=== PATIENT | female | born 1950 | race Caucasian/White ===

== ENCOUNTER 2020-11-09 08:17 | Outpatient (REF) | payer MEDICARE, OTHER, SELFPAY ==
--- NOTE | ~2020-11-09 | MM_ITS ---
EXAMINATION: MM SCREENING DIGITAL BREAST TOMOSYNTHESIS, BILATERAL CLINICAL INFORMATION: Screening. Asymptomatic. The lifetime risk of breast cancer based on the Tyrer-Cuzick Model is 3%. COMPARISON: Mammography: 11/04/2019, 11/01/2018, 10/29/2017, 10/27/2016 TECHNIQUE: Digital breast tomosynthesis is performed in both the craniocaudal and mediolateral oblique views along with computer-aided detection (CAD). Synthesized 2D images are generated from the tomosynthesis. FINDINGS: There are scattered areas of fibroglandular density (ACR BI-RADS breast composition Category b). Parenchymal pattern is similar to prior studies. There is parenchymal asymmetry mid upper right breast on MLO view similar to prior exams. Grouped calcifications again seen posterior upper outer left breast perhaps related to degenerating fibroadenoma. There is no developing density or interval mass or architectural abnormality. The axilla and skin contours are unremarkable. MM/MM tomosynthesis screening BI IMPRESSION: No significant changes from prior studies. ASSESSMENT: BI-RADS 2: Benign RECOMMENDATION: Routine annual mammography screening. This patient's information was entered into a reminder system with a target due date for their next mammogram.
== END 2020-11-09 08:18 | disposition home or self-care (01) ==
LOC: HO.MAMMO 08:17
PROVIDERS: Absent Provider Nurse Practitioner Adult Health; PCP Internal Medicine; Visit Provider Internal Medicine
DX: Z12.31 Encounter for screening mammogram for malignant neoplasm of breast (principal)
CPT/HCPCS: 77063; 77067

== ENCOUNTER 2021-11-13 08:56 | Outpatient (REF) | payer MEDICARE, OTHER, SELFPAY ==
--- NOTE | ~2021-11-13 | MM_ITS ---
EXAMINATION: MM SCREENING DIGITAL BREAST TOMOSYNTHESIS, BILATERAL CLINICAL INFORMATION: Screening. Asymptomatic. The lifetime risk of breast cancer based on the Tyrer-Cuzick Model is 3%. COMPARISON: Mammography: 11/09/2020, 11/04/2019, 11/01/2018 TECHNIQUE: Digital breast tomosynthesis is performed in both the craniocaudal and mediolateral oblique views along with computer-aided detection (CAD). Synthesized 2D images are generated from the tomosynthesis. Additional right MLO view is provided. FINDINGS: There are scattered areas of fibroglandular density (ACR BI-RADS breast composition Category b). Parenchymal pattern is similar to prior studies. No developing density or interval mass or architectural abnormality. There are grouped benign-appearing calcifications again seen posterior upper outer left breast, likely degenerating fibroadenoma. No suspicious calcifications. The axilla are unremarkable. MM/MM tomosynthesis screening BI IMPRESSION: No mammographic evidence of malignancy. ASSESSMENT: BI-RADS 2: Benign RECOMMENDATION: Routine annual mammography screening. This patient's information was entered into a reminder system with a target due date for their next mammogram.
== END 2021-11-13 08:57 | disposition home or self-care (01) ==
LOC: HO.MAMMO 08:56
PROVIDERS: Visit Provider Internal Medicine
DX: Z12.31 Encounter for screening mammogram for malignant neoplasm of breast (principal)
CPT/HCPCS: 77063; 77067

== ENCOUNTER 2021-12-05 10:29 | Outpatient (REF) | payer MEDICARE, OTHER, SELFPAY ==
[2021-12-05 14:43] LABS: Alanine Aminotransferase 12 U/L (0-31); Anion Gap 14 (12-20); Aspartate Amino Transferase 17 U/L (5-31); Blood Urea Nitrogen 18 mg/dL (9-16); Carbon Dioxide 25 mmol/L (22-29); Chloride 106 mmol/L (96-108); Cholesterol 210 mg/dL; Estimated Glomerular Filt Rate > 60; Glucose Fasting 92 mg/dL (60-99); HDL Cholesterol 61 mg/dL; LDL Cholesterol Calculated 136 mg/dl; Potassium 4.3 mmol/L (3.3-5.1); Sodium 141 mmol/L (135-145); Triglycerides 66 mg/dL
== END 2021-12-05 10:30 | disposition home or self-care (01) ==
LOC: HO.HMGCLDS 10:29
PROVIDERS: PCP Internal Medicine; Visit Provider Internal Medicine
DX: E66.3 Overweight (principal); G61.82 Multifocal motor neuropathy; G43.009 Migraine without aura, not intractable, without status migrainosus; N95.9 Unspecified menopausal and perimenopausal disorder; Z79.899 Other long term (current) drug therapy
CPT/HCPCS: 36415; 80048; 80061; 84450; 84460

== ENCOUNTER 2021-12-09 08:38 | Outpatient (REF) | payer MEDICARE, OTHER, SELFPAY ==
--- NOTE | ~2021-12-09 | XR_ITS ---
EXAMINATION: XR SHOULDER, RIGHT CLINICAL INFORMATION: Right shoulder sprain. COMPARISON: None TECHNIQUE: Three views of the right shoulder. FINDINGS: Superolateral deformity of the humeral head adjacent to the greater trochanter, which could be seen with a Hill-Sachs injury. No displaced fractures. No subluxation. Mild degenerative changes of the glenohumeral joint and moderate degenerative changes of the acromioclavicular joint manifested by subcortical sclerosis, osteophytes and joint space narrowing. No suspicious soft tissue calcifications. The included portion of the right-sided ribs and right lung are within normal limits. XR/XR shoulder RT min 2V IMPRESSION: Questionable Hill-Sachs fracture, indeterminate age. 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 Mild degenerative osteoarthritis of the glenohumeral joint.
== END 2021-12-09 08:39 | disposition home or self-care (01) ==
LOC: HO.HMGCX 08:38
PROVIDERS: PCP Internal Medicine; Visit Provider Internal Medicine
DX: S43.91XA Sprain of unspecified parts of right shoulder girdle, initial encounter (principal)
CPT/HCPCS: 73030

== ENCOUNTER 2022-10-02 13:39 | Outpatient (REF) | payer MEDICARE, OTHER, SELFPAY | END 2022-10-02 13:40 | disposition home or self-care (01) | LOC: HO.HMGCLDS 13:39 | PROVIDERS: PCP Internal Medicine; Visit Provider Internal Medicine | DX: R30.0 Dysuria (principal) | CPT/HCPCS: 87086 ==

== ENCOUNTER 2022-11-11 13:14 | Outpatient (AMB) | payer MEDICARE, OTHER, SELFPAY ==
--- NOTE | 2022-11-11 13:47 | MHC.PC.OV ---
Vital Signs 11/11/22 13:51 Height 5 ft 7 in Weight 188 lb BMI 29.4 BP 122/70 Blood Pressure Location Rt brachial Position Sitting Pulse 68 Pulse Source Pulse Oximeter Pulse Oximetry (%) 99 Oxygen Delivery Method Room Air Intake Visit Reasons: EKG results from outside hospital concerns Intake Note: Pt is here today to discuss EKG done at a urgent care Allergies codeine Allergy (Unknown, Verified 11/12/22 00:42) gi upset meperidine [Demerol] Allergy (Unknown, Verified 11/12/22 00:42) rash codeine Allergy (Unknown, Uncoded 11/12/22 00:42) vomiting Medication List - Last Reconciled 11/12/22 by Elaina Melgoza MD calcium carbonate (Calcium) 600 mg PO DAILY immune globul G-gly-IgA avg 46 40 gram/400 mL (10 %) (Gamunex-C) IV Tobacco use date assessed: 11/11/22 Fall risk assessment: No Falls in past year Last assessed Fall Risk: 11/11/22 Dental Screening Dental Screen Date: 11/11/22 Did you have a dental visit in the last 12 months?: Yes Did you have a dental problem in the last 6 months where you did not have access to dental care?: Yes Was dental information given to patient?: Patient has dentist HPI HPI Comments History of Present Illness Details 72-year-old lady history of multifocal motor neuropathy, chronic inflammatory demyelinating polyneuropathy, currently on long-term IV immunoglobulin, here today for follow-up after recent episodes of lightheadedness accompanied by nausea, unrelated to changes in position, which prompted her to be seen at an urgent care clinic 10/29/2022. Patient states that episodes are non provoked, unrelated to any position change, or exertion. Typically resolves after a few seconds to minutes. She denies any headache, or vision change no palpitation, no shortness of breath or syncope EKG done at the clinic showed presence of inter atrial conduction delay and possible interventricular delay, otherwise she was in normal sinus rhythm. She has had labs done recently which showed normal CBC, electrolytes,, thyroid level and fasting lipids and blood sugar levels. Still having recurrent episodes of lightheadedness similar to what she experienced prior to going to hurting care, but no other symptoms accompanying it. [facility] Medical History (Updated 11/12/22 @ 00:49 by Elaina Melgoza MD) Chronic inflammatory demyelinating polyneuropathy Dyslipidemia Fatigue Intermittent lightheadedness Intra-ventricular conduction delay Long-term current use of intravenous immunoglobulin (IVIG) Migraine without aura Multifocal motor neuropathy Muscle weakness of right arm Overweight (BMI 25.0-29.9) Surgical History History of tubal ligation Hx of colonoscopy S/P excision of neuroma Family History Father Lung cancer Social History Housing: House Alcohol intake: never Patient Tobacco Use Status: Never used Tobacco e-Cigarette/Vaping Use: Never Used Second Hand Smoke Exposure: No service: No Current occupational status: retired Cognitive needs: No Hearing needs: No Vision needs: No Questionnaire PHQ-9 Over the last 2 weeks, how often have you been bothered by any of the following problems? 1. Little interest or pleasure in doing things: not at all 2. Feeling down, depressed, or hopeless: not at all 3. Trouble falling or staying asleep, or sleeping too much: not at all 4. Feeling tired or having little energy: not at all 5. Poor appetite or overeating: not at all 6. Feeling bad about yourself - or that you are a failure or have let yourself or your family down: not at all 7. Trouble concentrating on things, such as reading the newspaper or watching television: not at all 8. Moving or speaking so slowly that other people could have noticed. Or the opposite - being so fidgety or restless that you have been moving around a lot more than usual: not at all 9. Thoughts that you would be better off or of hurting yourself in some way: not at all Total score: 0 Depression Screening Interpretation: Negative 94733 - PHQ-9 Billing: Yes Source: Developed by Drs. John Briceño, Eleonora Harrison, Navi Estes and colleagues, with an educational jarod from [employer]. Thrive Questionnaire Date Thrive assessed: 11/11/22 I am a: Patient What is your living situation today?: I have a steady place to live Within the past 12 months, did the food you bought not last and you didn't have the money to get more?: Never true Within the past 12 months, did you worry whether your food would run out before you got money to buy more?: Never true Do you have trouble paying for medicines?: No Do you have trouble getting transportation to medical appointments?: No Do you have trouble paying your heating and electricity bill?: No Do you have trouble taking care of your child, family member or friend?: No Do you have trouble with day-to-day activities such as bathing, preparing meals, shopping, managing finances, etc.?: No Are you currently unemployed and looking for a job?: No Are you interested in more education?: No AUDIT C Alcohol Use Questionnaire (AUDIT-C) 1. How often do you have a drink containing alcohol?: Never Total Score: 0 RADHA-7 AMB Questionnaire RADHA-7 Date RADHA - 7 assessed: 11/11/22 Feeling nervous, anxious, or on edge: 0 = Not at all Not being able to stop or control worryin = Not at all Worrying too much about different things: 0 = Not at all Trouble relaxin = Not at all Being so restless that it is hard to sit still: 0 = Not at all Becoming easily annoyed or irritable: 0 = Not at all Feeling afraid as if something awful might happen: 0 = Not at all Total RADHA-7 score (0-4 normal; 5-9 mild; 10-14 moderate; 15-21 severe): 0 Source: Developed by Drs. John Briceño, Eleonora Harrison, Navi Estes and colleagues, with an educational jarod from [employer]. Review of Systems Const All systems reviewed & are unremarkable except as noted in HPI and below Physical exam (Primary Care) Vital Signs: Last Vital Signs Pulse 68 11/11/22 13:51 BP 122/70 11/11/22 13:51 Pulse Ox 99 11/11/22 13:51 Oxygen Delivery Method Room Air 11/11/22 13:51 BMI result Body Mass Index 29.4 Tobacco/Smoking Status: Tobacco use Status Tobacco use date assessed 11/11/22 11/11/22 13:52 Patient Tobacco Use Status Never used Tobacco 11/11/22 13:51 e-Cigarette/Vaping Use Never Used 11/11/22 13:51 PHQ-9: PHQ-9 Score PHQ-9: Total score 0 11/11/22 14:12 Depression Screening Interpretation: Negative Thrive Assessment: Date of Thrive Assessment Date Thrive assessed 11/11/22 11/11/22 13:53 Const Other: Alert oriented x3, no acute distress, ambulatory normal gait Orientation/consciousness: patient oriented x3 Eyes General: appearance normal, both eyes and all related structures Neck Neck: Yes full ROM, Yes no lymphadenopathy and Yes supple Resp Effort & Inspection: normal respiratory effort and able to speak in complete sentences Auscultation: clear to auscultation bilaterally Cardio Other: S1-S2 present regular rate and rhythm GI Palpation (GI): Soft to palpation, nontender, no guarding, no hepatomegaly, no hernias and no masses General: Yes no CVA tenderness Back/Spine/Pelvis Back: no CVA tenderness and No back tenderness Skin General skin exam: no rashes or lesions noted Neuro General: patient oriented x3, gait normal, tone normal, moves all extremities, Normal light touch and pain sensation, no focal motor deficits, CN's II-XI intact bilaterally and normal sensation to monofilament Extrem General: Yes full ROM, Yes no joint enlargement, Yes no clubbing, cyanosis or edema and Yes normal gait Assessment and Plan Assessment & Plan (1) Intra-ventricular conduction delay: Code(s): I45.9 - Conduction disorder, unspecified Plan: Patient experiencing intermittent episodes of lightheadedness, blood pressure within normal limits, as well as fasting glucose and cholesterol levels. Will refer to cardiology for further evaluation (2) Intermittent lightheadedness: Code(s): R42 - Dizziness and giddiness Plan: Patient CBC, TSH, electrolytes fasting glucose and lipids are within normal limits. Referral to cardiology for further evaluation management (3) Dyslipidemia: Code(s): E78.5 - Hyperlipidemia, unspecified Plan: fasting lipid profile ordered . Continue with following a low-cholesterol diet and regular exercise, at least 30 minutes 3 to 4 times a week. Advised patient to make healthy food choices, eat more fruits, vegetables, whole grains, wild caught fish and low-fat dairy. Limit amount of meat and fried or fatty food products, as well as processed foods and fast foods. Orders: Orders Vitamin B12 and Folate 11/11/22 E78.5 - Hyperlipidemia, unspecified, R53.83 - Other fatigue, Z78.0 - Asymptomatic menopausal state Lipid Panel 11/11/22 E78.5 - Hyperlipidemia, unspecified, R53.83 - Other fatigue, Z78.0 - Asymptomatic menopausal state Vitamin D 25-OH Total 11/11/22 E78.5 - Hyperlipidemia, unspecified, R53.83 - Other fatigue, Z78.0 - Asymptomatic menopausal state Referrals Cardiology Referral I45.9 - Conduction disorder, unspecified, R42 - Dizziness and giddiness Coding Level of Care Code Est Pt Level 3 (12738) Diagnoses Intra-ventricular conduction delay I45.9 Intermittent lightheadedness R42 Dyslipidemia E78.5
[2022-11-11 13:51] VITALS: BP 122/70; PULSE 68; O2SAT 99; BMI 29.4
== END 2022-11-11 16:16 | disposition home or self-care (01) ==
PROVIDERS: PCP Internal Medicine; Visit Provider Internal Medicine
DX: I45.9 Conduction disorder, unspecified (principal); R42 Dizziness and giddiness; E78.5 Hyperlipidemia, unspecified
CPT/HCPCS: 99213

== ENCOUNTER 2022-11-13 09:19 | Outpatient (REF) | payer MEDICARE, OTHER, SELFPAY ==
[2022-11-13 12:02] LABS: Cholesterol 179 mg/dL; HDL Cholesterol 52 mg/dL; LDL Cholesterol Calculated 114 mg/dl; Triglycerides 66 mg/dL
[2022-11-13 12:19] LABS: Vitamin D 25-OH Total 43.5 ng/mL (>30)
[2022-11-13 12:54] LABS: Folate 8.1 ng/mL (> or = 4.0); Vitamin B12 559 pg/mL (200-900)
== END 2022-11-13 09:20 | disposition home or self-care (01) ==
LOC: HO.HMGCLDS 09:19
PROVIDERS: PCP Internal Medicine; Visit Provider Internal Medicine
DX: R53.83 Other fatigue (principal); E78.5 Hyperlipidemia, unspecified; Z78.0 Asymptomatic menopausal state
CPT/HCPCS: 36415; 80061; 82306; 82607; 82746

== ENCOUNTER 2022-11-17 07:20 | Outpatient (REF) | payer MEDICARE, OTHER, SELFPAY ==
--- NOTE | ~2022-11-17 | MM_ITS ---
EXAMINATION: MM SCREENING DIGITAL BREAST TOMOSYNTHESIS, BILATERAL CLINICAL INFORMATION: Screening. Asymptomatic. The lifetime risk of breast cancer based on the Tyrer-Cuzick Model is 2%. COMPARISON: Mammography: This study is compared with prior exams dating back to 2019. TECHNIQUE: Digital breast tomosynthesis is performed in both the craniocaudal and mediolateral oblique views along with computer-aided detection (CAD). Synthesized 2D images are generated from the tomosynthesis. FINDINGS: The breasts are heterogeneously dense, which may obscure small masses (ACR BI-RADS breast composition Category c). There are no significant masses, abnormal calcifications, or other abnormalities. Few, benign calcifications are present in each breast. MM/MM tomosynthesis screening BI IMPRESSION: No mammographic evidence of malignancy. ASSESSMENT: BI-RADS BI-RADS 2 - Benign Findings RECOMMENDATION: Routine annual mammography screening. 1 year F/U This examination should not preclude the clinical evaluation of a suspicious palpable abnormality. This patient's information was entered into a reminder system with a target due date for their next mammogram.
== END 2022-11-17 07:21 | disposition home or self-care (01) ==
LOC: HO.MAMMO 07:20
PROVIDERS: PCP Internal Medicine; Visit Provider Nurse Practitioner Adult Health
DX: Z12.31 Encounter for screening mammogram for malignant neoplasm of breast (principal)
CPT/HCPCS: 77063; 77067

== ENCOUNTER → 2022-11-17 07:30 | Outpatient (BNV) | payer MEDICARE, OTHER, SELFPAY | PROVIDERS: PCP Internal Medicine; Visit Provider Radiology Diagnostic Radiology | DX: Z12.31 Encounter for screening mammogram for malignant neoplasm of breast (principal) | CPT/HCPCS: 77063; 77067 ==

== ENCOUNTER 2022-11-19 08:34 | Outpatient (AMB) | payer MEDICARE, OTHER, SELFPAY ==
[2022-11-19 08:52] VITALS: BP 120/78; PULSE 58; BMI 29.3
--- NOTE | 2022-11-19 08:52 | MHC.OFFVIS ---
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 Patient presented for evaluation for lightheadedness. Patient says she has had neurologic symptoms for many years currently under control last IV immunoglobulin therapy last December. She has some form of neuropathy. However she recently has been getting increasing symptoms of lightheadedness. She said she had similar symptoms many years ago and was told that she was dehydrated. However more recently she has been getting symptoms intermittently where she feels suddenly lightheaded , with nausea. The symptoms are not positional in nature. There is no associated shortness of breath or chest discomfort or palpitations. Symptoms happen suddenly and then passed within few seconds. She had this EKG done and she was concerned about cardiac issues and was advised cardiology consultation. She has had no prior cardiovascular disease. She had screening done for vascular disease at an outside facility, no fissure report of labile. She was told that she had mild carotid atherosclerosis in the right carotid artery. She is currently not on any treatment for the same. She denies any prolonged palpitations irregular heartbeat. No active syncopal episode although she says that if she would get up and walk during this symptoms she would possibly pass out. She has no exertional chest pain. [facility] Medical History Chronic inflammatory demyelinating polyneuropathy Dyslipidemia Fatigue Intermittent lightheadedness Intra-ventricular conduction delay Long-term current use of intravenous immunoglobulin (IVIG) Migraine without aura Multifocal motor neuropathy Muscle weakness of right arm Overweight (BMI 25.0-29.9) Surgical History History of tubal ligation Hx of colonoscopy S/P excision of neuroma Family History Father Lung cancer Social History Housing: House Alcohol intake: never Patient Tobacco Use Status: Never used Tobacco e-Cigarette/Vaping Use: Never Used Second Hand Smoke Exposure: No service: No Current occupational status: retired Cognitive needs: No Hearing needs: No Vision needs: No Review of Systems Const Denies chills, Denies daytime sleepiness, Denies fatigue, Denies fever(s), Denies frequent falls, Denies poor appetite, Denies snoring, Denies stops breathing during sleep, Denies weakness, Denies weight gain and Denies weight loss Eyes Denies loss of vision ENT Denies dizziness and Denies hearing loss Card Denies chest pain, Denies claudication, Denies leg edema, Denies lightheadedness, Denies palpitations, Denies dyspnea, Denies dyspnea on exertion and Denies orthopnea Resp Denies cough, Denies excessive phlegm production, Denies dyspnea, Denies dyspnea on exertion, Denies snoring and Denies wheezing GI Denies abdominal pain, Denies hematochezia, Denies change in bowel habits, Denies nausea and Denies vomiting Denies urinary frequency and Denies dysuria Musc Denies arthralgias, Denies muscle weakness, Denies numbness and Denies other (frequent falls) Skin/Breast Denies nail changes and Denies rash Neuro Denies Abnormal speech present, Denies dizziness, Denies frequent falls, Denies loss of vision, Denies memory loss, Denies numbness and Denies weakness Psych Denies depression and Denies memory loss Endo Denies fatigue and Denies palpitations Milo/Lymph Reports easy bruising and Reports other (anemia) Aller/Immun Denies wheezing Physical Exam Vital Signs: Last Vital Signs Pulse 58 11/19/22 08:52 BP 120/78 11/19/22 08:52 BMI result Body Mass Index 29.3 Const General: cooperative, comfortable, no acute distress, alert, awake, Physically active, anxious and well groomed Nutritional Appearance: obese Orientation/consciousness: patient oriented x3 Limitations: no limitations HEENT Head: Yes normocephalic and Yes atraumatic Neck Neck: Yes trachea midline, Yes supple and Yes no JVD Resp Effort & Inspection: normal respiratory effort Auscultation: clear to auscultation bilaterally Cardio Jugular venous distension: no JVD Palpation: normal PMI Rate: regular rate Rhythm: regular rhythm Heart sounds: S1 normal heart sound present, S2 normal heart sound present, no click, no gallops, no murmurs and no rubs GI Auscultation: normal bowel sounds Skin General skin exam: no rashes or lesions noted Neuro General: patient oriented x3 Speech: No Abnormal speech present Extrem General: Yes no clubbing, cyanosis or edema Psych Appearance: grossly normal Affect: Anxious affect present Office Procedures EKG Details: EKG shows sinus bradycardia with no interventricular conduction delay 28089-[id number], Complete Assessment & Plan Assessment & Plan (1) Intermittent lightheadedness: Code(s): R42 - Dizziness and giddiness Plan: Intermittent lightheadedness of unclear etiology. Does not appear to be autonomic dysfunction and/or orthostatic hypertension. Transient cardiac arrhythmias are likely. Although symptoms are very short lasting. Would suggest her to undergo a 30 day event monitor to assess for any cardiac arrhythmias such as significant bradycardia and/or AV block. Will be scheduled in near future. Also suggest echocardiogram to well for structural heart disease. If there are no clear indication from these 2 tests could consider tilt-table test for further evaluation. Given that she was told that she has carotid disease will also suggest carotid duplex to rule out any significant carotid disease although less likely. Further treatment based on the finding of the test results. Her repeat EKG today is within normal limits and she was reassured that there is no significant abnormalities of the EKG. Will follow up in the clinic in 2 months time, sooner p.r.n.. Thank you for allowing me to partake in her care Coding Level of Care Code New Pt Level 4 (91792) Diagnoses Intermittent lightheadedness R42 CPT Codes EKG - CPT: 74696-[id number], Complete ([id number])
== END 2022-11-19 09:46 | disposition home or self-care (01) ==
PROVIDERS: PCP Internal Medicine; Visit Provider Internal Medicine Cardiovascular Disease
DX: R42 Dizziness and giddiness (principal)
CPT/HCPCS: 93010; 99204

== ENCOUNTER → 2022-11-19 08:34 | Outpatient (BNVA) | payer MEDICARE, OTHER, SELFPAY | PROVIDERS: PCP Internal Medicine; Visit Provider Internal Medicine Cardiovascular Disease | DX: R42 Dizziness and giddiness (principal) | CPT/HCPCS: 93005; 99202 ==

== ENCOUNTER 2022-11-20 12:44 | Outpatient (REF) | payer MEDICARE, OTHER, SELFPAY ==
--- NOTE | ~2022-11-20 | US_ITS ---
EXAMINATION: US EXTRACRANIAL CAROTID DUPLEX, BILATERAL CLINICAL INFORMATION: Dizziness and giddiness. COMPARISON: 11/06/2006 TECHNIQUE: Real-time ultrasound and Doppler techniques (integrating B-mode 2-D vascular images, Doppler spectral analysis and color-flow Doppler imaging) were utilized to interrogate the extracranial carotid arteries, the vertebral arteries and proximal subclavian arteries bilaterally. The degree of stenosis is determined by criteria similar to NASCET. FINDINGS: Incidental note made of a left-sided thyroid nodule measuring 1.3 cm. RIGHT SIDE: 1. There is minimal atherosclerotic plaque seen in the bifurcation/proximal ICA region. 2. The common carotid artery PSV proximally is 115 cm/s and distally 77 cm/s. 3. The proximal internal carotid artery velocities are 64 cm/s systolic and 19 cm/s diastolic. 4. The proximal external carotid artery PSV is 95 cm/s. 5. The vertebral artery shows antegrade flow. 6. The subclavian artery waveforms are normal. LEFT SIDE: 1. There is minimal atherosclerotic plaque seen in the bifurcation/proximal ICA region. 2. The common carotid artery PSV proximally is 110 cm/s and distally 78 cm/s. 3. The proximal internal carotid artery velocities are 46 cm/s systolic and 17 cm/s diastolic. 4. The proximal external carotid artery PSV is 89 cm/s. 5. The vertebral artery shows antegrade flow. 6. The subclavian artery waveforms are normal. US/US carotid duplex BI IMPRESSION: 1. RIGHT: Minimal, non-hemodynamically significant stenosis of the proximal right internal carotid artery corresponding to a 0-49% stenosis by velocity criteria. 2. LEFT: Minimal, non-hemodynamically significant stenosis of the proximal left internal carotid artery corresponding to a 0-49% stenosis by velocity criteria. 3. There is no change in the category severity of disease when compared to the previous study dated 11/06/2006. 4. Incidentally noted thyroid nodule. Dedicated thyroid ultrasound is recommended for further evaluation if clinically indicated.
== END 2022-11-20 12:45 | disposition home or self-care (01) ==
LOC: HO.HMGCX 12:44
PROVIDERS: PCP Internal Medicine; Visit Provider Internal Medicine Cardiovascular Disease
DX: R42 Dizziness and giddiness (principal)
CPT/HCPCS: 93880

== ENCOUNTER → 2022-11-21 10:38 | Outpatient (REF) | payer MEDICARE, OTHER, SELFPAY ==
--- NOTE | 2022-11-21 10:44 | HM_ITS ---
* Total monitoring time 30 days. Wear time 26 days. * Underlying rhythm is sinus with an average heart rate of 69/Min. Range 47 to 129/Min. * Rare supraventricular and ventricular ectopy. * No sustained arrhythmias. * Symptoms in diary describing congestion of ears, sore throat, COVID correlate with sinus rhythm, isolated PVC. MTDD
== END ==
LOC: HO.CARD 10:38
PROVIDERS: PCP Internal Medicine; Visit Provider Internal Medicine Cardiovascular Disease
DX: R42 Dizziness and giddiness (principal)
CPT/HCPCS: 93270

== ENCOUNTER → 2022-11-21 10:44 | Outpatient (BNV) | payer MEDICARE, OTHER, SELFPAY | PROVIDERS: PCP Internal Medicine; Visit Provider Internal Medicine | DX: I47.1 Supraventricular tachycardia (principal) | CPT/HCPCS: 93272 ==

== ENCOUNTER 2022-12-08 08:45 | Outpatient (AMB) | payer MEDICARE, OTHER, SELFPAY ==
--- NOTE | 2022-12-08 09:08 | A.OFFPC_ITS ---
Vital Signs 12/08/22 09:09 Height 5 ft 7 in Weight 181 lb BMI 28.3 BP 120/72 Blood Pressure Location Rt brachial Position Sitting Pulse 85 Pulse Source Pulse Oximeter Pulse Oximetry (%) 95 Oxygen Delivery Method Room Air Intake Visit Reasons: Followup ?infection Intake Note: Pt is here today c/o Rt ear ?infection Allergies codeine Allergy (Unknown, Verified 12/08/22 09:32) gi upset meperidine [Demerol] Allergy (Unknown, Verified 12/08/22 09:32) rash codeine Allergy (Unknown, Uncoded 12/08/22 09:32) vomiting Medication List - Last Reconciled 12/08/22 by Elaina Melgoza MD calcium carbonate (Calcium) 600 mg PO DAILY magnesium 200 mg PO DAILY rosuvastatin 20 mg PO DAILY Tobacco use date assessed: 12/08/22 Fall risk assessment: No Falls in past year Last assessed Fall Risk: 12/08/22 Dental Screening Dental Screen Date: 12/08/22 Did you have a dental visit in the last 12 months?: Yes Did you have a dental problem in the last 6 months where you did not have access to dental care?: Yes Was dental information given to patient?: Patient has dentist HPI Followup ?infection HPI Details 72-year-old lady here today complaining of chronic fatigue, no energy. She currently is recovering from COVID infection, tested positive a week ago, and tested negative yesterday. No loss of sense of smell or taste, no cough, no shortness of breath but has intermittent episodes of fatigue and malaise. Also complains of pressure inside her right ear. Was seen at urgent care recently for impacted cerumen and they tried ear lavage. Patient states that they put a lot of pressure during the lavage and felt sudden pain inside her right ear. She has been putting Debrox drops inside right ear for the last 4 days, still feeling clogged inside . [facility] Medical History Chronic inflammatory demyelinating polyneuropathy Dyslipidemia Fatigue History of COVID-19 Intermittent lightheadedness Intra-ventricular conduction delay Long-term current use of intravenous immunoglobulin (IVIG) Migraine without aura Multifocal motor neuropathy Muscle weakness of right arm Overweight (BMI 25.0-29.9) Surgical History History of tubal ligation Hx of colonoscopy S/P excision of neuroma Family History Father Lung cancer Social History Housing: House Alcohol intake: never Patient Tobacco Use Status: Never used Tobacco e-Cigarette/Vaping Use: Never Used Second Hand Smoke Exposure: No service: No Current occupational status: retired Cognitive needs: No Hearing needs: No Vision needs: No Questionnaire PHQ-9 Over the last 2 weeks, how often have you been bothered by any of the following problems? Depression Screening Interpretation: Negative Source: Developed by Drs. John Briceño, Eleonora Harrison, Navi Estes and colleagues, with an educational jarod from [employer]. Thrive Questionnaire Date Thrive assessed: 11/11/22 RADHA-7 AMB Questionnaire RADHA-7 Date RADHA - 7 assessed: 11/11/22 Source: Developed by Drs. John Briceño, Eleonora Harrison, Navi Estes and colleagues, with an educational jarod from [employer]. Review of Systems Const Reports as per HPI, Denies chills, Denies fever(s), Denies headache(s) and Denies weakness ENT Reports no additional complaints, Denies vertigo and Denies headache(s) Card Denies chest pain, Denies chest pain with activity, Denies rapid heart rate, Denies irregular heart rhythm, Denies dyspnea and Denies dyspnea on exertion Resp Denies cough, Denies dyspnea and Denies dyspnea on exertion GI Reports no additional complaints Reports no additional complaints Musc Reports no additional complaints and Denies tingling Skin/Breast Denies rash Neuro Denies vertigo, Denies headache(s), Denies focal weakness, Denies seizure-like activity, Denies tingling and Denies weakness Endo Reports no additional complaints Milo/Lymph Reports no additional complaints Physical exam (Primary Care) Vital Signs: Last Vital Signs Pulse 85 12/08/22 09:09 BP 120/72 12/08/22 09:09 Pulse Ox 95 12/08/22 09:09 Oxygen Delivery Method Room Air 12/08/22 09:09 BMI result Body Mass Index 28.3 Tobacco/Smoking Status: Tobacco use Status Tobacco use date assessed 12/08/22 12/08/22 09:20 Patient Tobacco Use Status Never used Tobacco 12/08/22 09:10 e-Cigarette/Vaping Use Never Used 12/08/22 09:10 Depression Screening Interpretation: Negative Thrive Assessment: Date of Thrive Assessment Date Thrive assessed 11/11/22 12/08/22 09:10 Const Other: Alert oriented x3, no acute distress, ambulatory normal gait Orientation/consciousness: patient oriented x3 HENMT Other: Partially impacted soft several in right ear canal, with no erythema or swelling of ear canal noted, partially visualized tympanic membrane , left EAC and left TM within normal limits. Eyes General: appearance normal, both eyes and all related structures Neck Neck: Yes full ROM, Yes no lymphadenopathy and Yes supple Resp Effort & Inspection: normal respiratory effort and able to speak in complete sentences Auscultation: clear to auscultation bilaterally Cardio Other: S1-S2 present regular rate and rhythm GI Palpation (GI): Soft to palpation, nontender, no guarding, no hepatomegaly, no hernias and no masses Back/Spine/Pelvis Back: No back tenderness Skin General skin exam: no rashes or lesions noted Neuro General: patient oriented x3, gait normal, tone normal, moves all extremities, Normal light touch and pain sensation, no focal motor deficits, CN's II-XI intact bilaterally and normal sensation to monofilament Extrem General: Yes full ROM, Yes no joint enlargement, Yes no clubbing, cyanosis or edema and Yes normal gait Assessment and Plan Assessment & Plan (1) Impacted cerumen of right ear: Code(s): H61.21 - Impacted cerumen, right ear Plan: Referred to Dr. 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
[2022-12-08 09:09] VITALS: BP 120/72; PULSE 85; O2SAT 95; BMI 28.3
== END 2022-12-08 10:43 | disposition home or self-care (01) ==
PROVIDERS: PCP Internal Medicine; Visit Provider Internal Medicine
DX: H61.21 Impacted cerumen, right ear (principal); G93.32 Myalgic encephalomyelitis/chronic fatigue syndrome; U09.9 Post COVID-19 condition, unspecified
CPT/HCPCS: 99213

== ENCOUNTER 2022-12-08 09:58 | Outpatient (REF) | payer MEDICARE, OTHER, SELFPAY ==
[2022-12-08 12:56] LABS: MANUAL DIFF FLAG NO
[2022-12-08 13:14] LABS: Basophils Percent Auto 0.7 % (0-2); Eosinophils Percent Auto 0.5 % (0-4); Hematocrit 44.7 % (37.0-47.0); Hemoglobin 14.5 g/dl (12.0-16.0); Imm Gran Abs Auto 0.01 X10*3/uL (0.00-0.03); Imm Gran Pct Auto 0.2 % (0.0-0.4); Lymphocytes Absolute Auto 1.1 X10*3/uL (1.2-4.9); Mean Corpuscular HGB Conc 32.4 g/dl (31.0-35.0); Mean Corpuscular Hemoglobin 29.4 pg (27.0-33.0); Mean Corpuscular Volume 90.5 fL (80.0-98.0); Monocytes Absolute Auto 0.6 X10*3/uL (0.1-1.2); Monocytes Percent Auto 14.8 % (2-11); Neutrophils Absolute Auto 2.4 x10*3/uL (2.0-8.3); Neutrophils Percent Auto 56.8 % (45-73); Platelet Count 230 X10*3/uL (160-400); Red Blood Count 4.94 X10*6/uL (4.20-5.50); Red Cell Distribution Width 12.5 % (11.0-16.0); White Blood Count 4.2 X10*3/uL (4.8-10.8)
== END 2022-12-08 09:59 | disposition home or self-care (01) ==
LOC: HO.HMGCLDS 09:58
PROVIDERS: PCP Internal Medicine; Visit Provider Internal Medicine
DX: G93.32 Myalgic encephalomyelitis/chronic fatigue syndrome (principal); U09.9 Post COVID-19 condition, unspecified
CPT/HCPCS: 36415; 85025

== ENCOUNTER → 2022-12-18 12:48 | Outpatient (REF) | payer MEDICARE, OTHER, SELFPAY ==
--- NOTE | 2022-12-18 12:58 | CA_ITS ---
Transthoracic Echocardiogram Patient (Last, First, Middle): Jacki Mina L Gender: Female Date of : 1950 Age: 72 Procedure Date: 12/18/2022 Procedure Type: Transthoracic Echocardiogram Location: OP Height: 170.18 cm Weight: 80.74 kg BSA: 1.92 m2 Heart Rate: 55 bpm BP: 142 / 80 mmHg Patent Litigation Associate: SB Referring MD: Sundar Navarro MD Motor Operator: Sundar Navarro MD Symptoms: R42 - Dizziness and giddiness Study Quality: Technically Difficult ECG Rhythm: Bradycardia Conclusions: - 1. Technically limited study despite use of contrast agent 2. Normal LV ejection fraction 55-60% with impaired relaxation filling pattern 3. Cardiac valvular Dopplers within normal limits 4. Mildly to moderately dilated ascending aorta at 4.4 cm 5. Normal RV systolic pressure 6. No gross pericardial effusion Findings Procedure Information Contrast agent, definity, is being given per protocol without apparent complications. The quality of the study was fair and technically difficult. The study quality is limited by patients body habitus and lung artifact. Left Ventricle Normal left ventricular cavity size. There is normal left ventricular wall thickness. The left ventricular systolic function is normal. The visually estimated ejection fraction is between 55-60%. Regional wall motion abnormalities can not be excluded due to suboptimal endocardial definition. Spectral Doppler is indicative of an impaired relaxation filling pattern. E/E prime ratio is between 8 and 15 consistent with indeterminate filling pressures. Right Ventricle The right ventricle was not well visualized. Atria The left atrium is likely dilated. Interatrial shunt cannot be excluded. The right atrium was not well visualized. Aortic Valve The aortic valve was not well visualized. There is no aortic valve stenosis. There is no aortic valve regurgitation. Mitral Valve Likely normal mitral valve structure and function. There is trace mitral valve regurgitation. There is no mitral valve stenosis. Pulmonic Valve The pulmonic valve was not well visualized. Tricuspid Valve The tricuspid valve was not well visualized. There is trace tricuspid valve regurgitation. The right ventricular systolic pressure is normal. The right ventricular systolic pressure is 27 mmHg. Normal right atrial pressure. There is no evidence of pulmonary hypertension. Great Vessels The pulmonary artery was not well visualized. Venous The inferior vena cava is normal in size and collapses greater than 50% with inspiration. Pericardium/Pleural There is no evidence of pericardial effusion. Prior Study Comparison No prior study available for comparison. Measurements 2D Linear Measurements IVSd: 0.81 0.6-0.9/0.6-1.0 cm LVIDd: 6.13 3.9-5.3/4.2-5.9 cm LVIDd Index: 3.19 2.4-3.2/2.2-3.1 cm/m2 LVIDs: 4.21 2.0-3.6 cm LVPWd: 0.80 0.7-1.1 cm LA Diam: 4.00 2.7-3.8/3.0-4.0 cm LAIDs Index: 2.08 1.5-2.3 cm/m2 LV Mass: 242.67 67-162/88-224 g LV Mass Index: 126.39 43-95/49-115 g/m2 LVOT Diam: 2.00 3.0+(-)1.3 cm 2D Systolic Function EF 4C: 54.00 >55% Mitral Valve MV Pk E: 0.59 MV PK A: 0.81 MV Decel Time: 230.00 E/A: 0.70 E'Lateral: 4.79 E'Medial: 4.79 E/E' Med: 12.30 E/E' Lat: 12.30 PHT: 67.00 MVA PHT: 3.28 Decel Giles: 2.57 Aortic Valve AoV Pk Huseyin: 1.18 AoV Pk Grad: 6.00 AARON: 3.34 LVOT LVOT Pk Huseyin: 1.16 LVOT Mn Huseyin: 0.78 LVOT VTI: 0.25 LVOT Pk Grad: 5.00 LVOT Mn Grad: 3.00 LVOT Diam: 2.00 LVOT Area: 3.14 Diastolic Function MV Pk E: 0.59 MV Pk A: 0.81 E/A: 0.70 E'Medial: 4.79 E/E' Med: 12.30 E' Laterial: 4.79 E/E' Lat: 12.30 Right Ventricle TAPSE (mm): 30.10 TVS' Huseyin: 15.50 Tricuspid Valve TR Pk Huseyin: 2.43 TR Pk Grad: 24.00 RA Press: 3.00 RVSP: 27.00 Great Vessels Aorta Sinus of Valsalva: 3.50 2.0-3.5 cm Ao Asc: 4.40 2.1-3.4 cm Pulmonary Valve PV Pk Huseyin: 0.89 Peak PV Grad: 3.00 Updated in Other Vendor System with Status of Final Sundar Navarro MD electronically signed on 12/19/2022 12:33:31 PM with status of Final
== END ==
LOC: HO.CARD 12:48
PROVIDERS: PCP Internal Medicine; Visit Provider Internal Medicine Cardiovascular Disease
DX: R42 Dizziness and giddiness (principal)
CPT/HCPCS: 93306; Q9957

== ENCOUNTER → 2022-12-18 12:58 | Outpatient (BNV) | payer MEDICARE, OTHER, SELFPAY | PROVIDERS: PCP Internal Medicine; Visit Provider Internal Medicine Cardiovascular Disease | DX: R00.1 Bradycardia, unspecified (principal); R42 Dizziness and giddiness | CPT/HCPCS: 93306 ==

== ENCOUNTER 2023-01-06 09:02 | Outpatient (AMB) | payer MEDICARE, OTHER, SELFPAY ==
[2023-01-06 09:04] VITALS: BP 132/80; PULSE 66; O2SAT 96; BMI 28.2
--- NOTE | 2023-01-06 09:04 | MHC.OFFVIS ---
Intake Vital Signs 01/06/23 09:04 Height 5 ft 7 in Weight 180 lb 5.41 oz BMI 28.2 BP 132/80 Blood Pressure Location Lt brachial Position Sitting Pulse 66 Pulse Source Pulse Oximeter Pulse Oximetry (%) 96 Oxygen Delivery Method Room Air Intake Visit Reasons: 2 mth fu echo/ 30 d monitor Intake Note: Pt presents to the office today for a 2 month follow up echo/ 30 day monitor. Pt states she is feeling much better and denies any SOB or chest pain. Allergies codeine Allergy (Unknown, Verified 01/06/23 09:11) gi upset meperidine [Demerol] Allergy (Unknown, Verified 01/06/23 09:11) rash codeine Allergy (Unknown, Uncoded 01/06/23 09:11) vomiting Medication List - Last Reconciled 01/06/23 by Gina Cartwright, LOAN EXPEDITOR-C aspirin (Adult Aspirin Regimen) 81 mg PO DAILY calcium carbonate (Calcium) 600 mg PO DAILY magnesium 200 mg PO DAILY rosuvastatin 20 mg PO DAILY HPI 2 mth fu echo/ 30 d monitor HPI Details Jacki is a 72-year-old female with past medical history of hyperlipidemia, carotid stenosis who reported lightheaded episodes last visit and underwent a carotid ultrasound, 30 day cardiac event monitor and echocardiogram and now presents for follow-up. Today she reports that she identified what her lightheadedness to was caused by. She had an infection in her ear causing hearing loss and imbalance. She was treated with antibiotic and steroids with resolution of this problem. She has not had recurrent lightheadedness since then. She does not feel any heart palpitations. No chest discomfort, shortness of breath, presyncope, syncope, PND, orthopnea or edema. She remains active through the day without limitations. Takes her meds as directed. [facility] Medical History (Updated 01/06/23 @ 11:13 by Gina Cartwright, LOAN EXPEDITOR-C) History of COVID-19 Fatigue Dyslipidemia Intermittent lightheadedness Intra-ventricular conduction delay Overweight (BMI 25.0-29.9) Muscle weakness of right arm 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 Migraine without aura Chronic inflammatory demyelinating polyneuropathy Surgical History Hx of colonoscopy History of tubal ligation S/P excision of neuroma Family History Father Lung cancer Social History Housing: House Alcohol intake: never Patient Tobacco Use Status: Never used Tobacco e-Cigarette/Vaping Use: Never Used Second Hand Smoke Exposure: No service: No Current occupational status: retired Cognitive needs: No Hearing needs: No Vision needs: No Review of Systems Const Details: Lightheadedness has since resolved with antibiotic and steroid her treatment of ear infection All systems reviewed & are unremarkable except as noted in HPI and below Physical Exam Vital Signs: Last Vital Signs Pulse 66 01/06/23 09:04 BP 132/80 01/06/23 09:04 Pulse Ox 96 01/06/23 09:04 Oxygen Delivery Method Room Air 01/06/23 09:04 BMI result Body Mass Index 28.2 Const General: cooperative, healthy appearing, comfortable and no acute distress Orientation/consciousness: patient oriented x3 Neck Neck: Yes normal visual inspection Resp Effort & Inspection: normal respiratory effort Auscultation: clear to auscultation bilaterally, no crackles, no rales, no rhonchi and no wheezes Cardio Jugular venous distension: no JVD Rate: regular rate Rhythm: regular rhythm Heart sounds: S1 normal heart sound present, S2 normal heart sound present, no murmurs and no rubs Neuro General: patient oriented x3 Extrem General: Yes normal to inspection and No no pedal edema Psych Appearance: grossly normal Mental Status: mental status grossly normal Speech and movement: Normal speech and movement present Assessment & Plan Assessment & Plan (1) Intermittent lightheadedness: Code(s): R42 - Dizziness and giddiness Plan: Report of intermittent lightheadedness initially concerning for possible arrhythmia. She had a 30 day cardiac event monitor on 11/21/2022 showing sinus rhythm with average heart rate 69, heart rate range 47 to 129, rare ectopy. An echocardiogram done 12/18/2022 showed EF 55-60%, impaired relaxation, ascending aorta 4.4 cm. Carotid ultrasound done 11/20/2022 showing right and left ICA 0 to 49% stenosis, incidental thyroid nodule noted. Will send this result to her PCP. Review test results with her. She now tells me that her lightheadedness has fully resolved after treatment of ear infection. Her symptom was noncardiac in nature. (2) Ascending aorta dilatation: Code(s): I77.810 - Thoracic aortic ectasia Plan: Incidental finding of dilated ascending aorta on echocardiogram as above. No history of hypertension. Will plan for a limited echocardiogram to reassess ascending aorta in approximately 6 months. Patient tells me she is going to [place] through the winter and will be back in July. Will plan on testing when she returns. Cardiology follow-up when test results are available. (3) Carotid artery disease: Code(s): I77.9 - Disorder of arteries and arterioles, unspecified Qualifiers: Carotid artery disease type: stenosis Laterality: bilateral Qualified Code(s): I65.23 - Occlusion and stenosis of bilateral carotid arteries Plan: Mild carotid stenosis noted on recent ultrasound, right and left ICA 0-49% stenosis. Reviewed this result with her. The importance of good cholesterol control discussed. Continue rosuvastatin with ideal LDL goal less than 70. Also recommend she continue on aspirin 81 mg daily. Rationale for each med reviewed. (4) Dyslipidemia: Code(s): E78.5 - Hyperlipidemia, unspecified Plan: LDL goal less than 70. Labs done 11/13/2022 showed LDL 114. It looks like rosuvastatin was then added. Plan for a fasting lipid profile in near future. Lipid order in place. Orders: Orders CA echo limited 08/17/23 I77.810 - Thoracic aortic ectasia Coding Level of Care Code Est Pt Level 4 (69424) Diagnoses Intermittent lightheadedness R42 Ascending aorta dilatation I77.810 Bilateral carotid artery stenosis I65.23 Carotid artery disease type: stenosis Laterality: bilateral Dyslipidemia E78.5 Time Spent (min) 28
== END 2023-01-06 10:02 | disposition home or self-care (01) ==
PROVIDERS: PCP Internal Medicine; Visit Provider Nurse Practitioner Family
DX: R42 Dizziness and giddiness (principal); I77.810 Thoracic aortic ectasia; I65.23 Occlusion and stenosis of bilateral carotid arteries; E78.5 Hyperlipidemia, unspecified
CPT/HCPCS: 99214

== ENCOUNTER → 2023-01-06 09:02 | Outpatient (BNVA) | payer MEDICARE, OTHER, SELFPAY | PROVIDERS: PCP Internal Medicine; Visit Provider Nurse Practitioner Family | DX: R42 Dizziness and giddiness (principal); I65.23 Occlusion and stenosis of bilateral carotid arteries; I77.810 Thoracic aortic ectasia; E78.5 Hyperlipidemia, unspecified | CPT/HCPCS: 99212 ==

== ENCOUNTER 2023-01-15 10:10 | Outpatient (REF) | payer MEDICARE, OTHER, SELFPAY | END 2023-01-15 10:11 | disposition home or self-care (01) | LOC: HO.HMGCX 10:10 | PROVIDERS: PCP Internal Medicine; Visit Provider Internal Medicine | DX: E04.1 Nontoxic single thyroid nodule (principal) | CPT/HCPCS: 76536 ==

== ENCOUNTER 2023-01-21 09:57 | Outpatient (REF) | payer MEDICARE, OTHER, SELFPAY | END 2023-01-21 09:58 | disposition home or self-care (01) | LOC: HO.HMGCLDS 09:57 | PROVIDERS: PCP Internal Medicine; Visit Provider Internal Medicine | DX: E04.1 Nontoxic single thyroid nodule (principal) | CPT/HCPCS: 36415; 84443 ==

== ENCOUNTER 2023-01-22 09:16 | Outpatient (AMB) | payer MEDICARE, OTHER, SELFPAY ==
[2023-01-22 09:21] VITALS: BP 120/70; PULSE 63; O2SAT 97; BMI 27.7
--- NOTE | 2023-01-22 09:21 | A.OFFPC_ITS ---
Vital Signs 01/22/23 09:21 Height 5 ft 7 in Weight 177 lb BMI 27.7 BP 120/70 Blood Pressure Location Rt brachial Position Sitting Pulse 63 Pulse Source Pulse Oximeter Pulse Oximetry (%) 97 Oxygen Delivery Method Room Air Intake Visit Reasons: Discuss US/Sense of Smell/Memory Intake Note: patient is here today to discuss sense of smell/memory Allergies codeine Allergy (Unknown, Verified 01/22/23 10:28) gi upset meperidine [Demerol] Allergy (Unknown, Verified 01/22/23 10:28) rash codeine Allergy (Unknown, Uncoded 01/22/23 10:28) vomiting Medication List - Last Reconciled 01/22/23 by Elaina Melgoza MD aspirin (Adult Aspirin Regimen) 81 mg PO DAILY calcium carbonate (Calcium) 600 mg PO DAILY magnesium 200 mg PO DAILY rosuvastatin 20 mg PO DAILY Tobacco use date assessed: 01/22/23 Fall risk assessment: No Falls in past year Last assessed Fall Risk: 01/22/23 Dental Screening Dental Screen Date: 01/22/23 Did you have a dental visit in the last 12 months?: Yes Did you have a dental problem in the last 6 months where you did not have access to dental care?: No Was dental information given to patient?: Patient has dentist HPI Discuss US/Sense of Smell/Memory HPI Details 72-year-old lady here today to discuss r esults of her thyroid ultrasound. It showed 2 nodules on the right lobe greater than 1 cm. Patient denies any difficulty swallowing, no abnormal weight loss or weight gain, no palpitations. TSH came back within normal limits. 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 This was treated with oral steroids and antibiotics with good resolution of symptoms. She also reports problems with brain fog and word-finding difficulties every since she contracted COVID recently. Patient however reports that this seems to be getting better. [facility] Medical History (Updated 01/22/23 @ 10:33 by Elaina Melgoza MD) Brain fog Phantosmia Thyroid nodule greater than or equal to 1 cm in diameter incidentally noted on imaging study Thyroid nodule History of COVID-19 Fatigue Dyslipidemia Intermittent lightheadedness Intra-ventricular conduction delay Overweight (BMI 25.0-29.9) Muscle weakness of right arm 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 Migraine without aura Chronic inflammatory demyelinating polyneuropathy Surgical History Hx of colonoscopy History of tubal ligation S/P excision of neuroma Family History (Updated 01/22/23 @ 10:16 by Elaina Melgoza MD) Father Lung cancer Brother Colon cancer Social History Housing: House Alcohol intake: never Patient Tobacco Use Status: Never used Tobacco e-Cigarette/Vaping Use: Never Used Second Hand Smoke Exposure: No service: No Current occupational status: retired Cognitive needs: No Hearing needs: No Vision needs: No Questionnaire Thrive Questionnaire Date Thrive assessed: 11/11/22 AUDIT C Alcohol Use Questionnaire (AUDIT-C) 1. How often do you have a drink containing alcohol?: Never Total Score: 0 RADHA-7 AMB Questionnaire RADHA-7 Date RADHA - 7 assessed: 11/11/22 Source: Developed by Drs. John Briceño, Eleonora Harrison, Navi Estes and colleagues, with an educational jarod from [employer]. Review of Systems Const All systems reviewed & are unremarkable except as noted in HPI and below Physical exam (Primary Care) Vital Signs: Last Vital Signs Pulse 63 01/22/23 09:21 BP 120/70 01/22/23 09:21 Pulse Ox 97 01/22/23 09:21 Oxygen Delivery Method Room Air 01/22/23 09:21 BMI result Body Mass Index 27.7 Tobacco/Smoking Status: Tobacco use Status Tobacco use date assessed 01/22/23 01/22/23 09:23 Patient Tobacco Use Status Never used Tobacco 01/22/23 09:23 e-Cigarette/Vaping Use Never Used 01/22/23 09:23 Thrive Assessment: Date of Thrive Assessment Date Thrive assessed 11/11/22 01/22/23 09:23 Const Other: Alert oriented x3, no acute distress, ambulatory normal gait Orientation/consciousness: patient oriented x3 HENMT Head: Yes normocephalic Face and sinus: Yes face symmetric Eyes General: appearance normal, both eyes and all related structures Neck Neck: Yes full ROM, Yes no lymphadenopathy and Yes supple Thyroid: Thyroid normal (Nonpalpable, nontender) Resp Effort & Inspection: normal respiratory effort and able to speak in complete sentences Auscultation: clear to auscultation bilaterally Cardio Other: S1-S2 present regular rate and rhythm Neuro General: patient oriented x3, gait normal, tone normal, moves all extremities and no focal motor deficits Extrem General: Yes full ROM, Yes no joint enlargement, Yes no clubbing, cyanosis or edema and Yes normal gait Assessment and Plan Assessment & Plan (1) Thyroid nodule greater than or equal to 1 cm in diameter incidentally noted on imaging study: Comment: Left superior. Size: 1.4 x 0.80 x 1.2 cm, volume 0.64 mL. Nodule characteristics: Composition: Mixed cystic and solid (1). Echogenicity: Isoechoic (1). Shape: Not taller than wide (0). Margins: Smooth (0). Echogenic Foci: None (0). ACR TI-RADS total points: 2 ACR TI-RADS category: 2 3. Location: Left inferior. Size: 2.7 x 2.2 x 2.2 cm, volume 7.0 mL. Nodule characteristics: Composition: Solid/almost completely solid (2) Code(s): E04.1 - Nontoxic single thyroid nodule (2) Phantosmia: Comment: seees Dr Zarate , treated with oral steroids and antibiotic Code(s): R44.2 - Other hallucinations Plan: Seen by Dr. Zarate , resolved (3) Brain fog: Code(s): R41.89 - Other symptoms and signs involving cognitive functions and awareness Plan: Started ever since she had her recent COVID infection, seems to be improving , per patient Orders: Referrals Endocrinology Referral E04.1 - Nontoxic single thyroid nodule Coding Level of Care Code Est Pt Level 3 (86310) Diagnoses Thyroid nodule greater than or equal to 1 cm in diameter incidentally noted on imaging study E04.1 Phantosmia R44.2 Brain fog R41.89
== END 2023-01-22 12:15 | disposition home or self-care (01) ==
PROVIDERS: PCP Internal Medicine; Visit Provider Internal Medicine
DX: E04.1 Nontoxic single thyroid nodule (principal); R44.2 Other hallucinations; R41.89 Other symptoms and signs involving cognitive functions and awareness; G61.82 Multifocal motor neuropathy
CPT/HCPCS: 99213

== ENCOUNTER 2023-01-30 09:08 | Day surgery (SDC) | payer MEDICARE, OTHER, SELFPAY ==
--- NOTE | 2023-01-29 11:43 | P.CONAN_ITS ---
Documented by User: Estrellita Knowles NP 01/29/23 11:46 HPI - Anesthesia Eval Consult details Narrative: 72yo F for Colonoscopy Cardiac w/u 12/2022 d/t dizziness. Found to be d/t ear infection. Resolution of symptoms with tx of ear infection. Cardiac w/u wnl except incidental finding of mild AAA PMFSH Active Problems Active Problems: All Active Problems (Updated 01/22/23 @ 10:33 by Elaina Melgoza MD) Brain fog (Acute) Phantosmia (Acute) Thyroid nodule greater than or equal to 1 cm in diameter incidentally noted on imaging study (Acute) Thyroid nodule (Acute) Ascending aorta dilatation (Acute) Carotid artery disease (Acute) Fatigue (Acute) Dyslipidemia (Acute) Intermittent lightheadedness (Acute) Intra-ventricular conduction delay (Acute) Overweight (BMI 25.0-29.9) (Acute) Long-term current use of intravenous immunoglobulin (IVIG) (Acute) Multifocal motor neuropathy (Acute) Chronic inflammatory demyelinating polyneuropathy (Acute) Migraine without aura (Acute) Past Medical History Medical History (Updated 01/22/23 @ 10:33 by Elaina Melgoza MD) Brain fog Phantosmia Thyroid nodule greater than or equal to 1 cm in diameter incidentally noted on imaging study Thyroid nodule History of COVID-19 Fatigue Dyslipidemia Intermittent lightheadedness Intra-ventricular conduction delay Overweight (BMI 25.0-29.9) Muscle weakness of right arm 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 Migraine without aura Chronic inflammatory demyelinating polyneuropathy Family History Family History (Updated 01/22/23 @ 10:16 by Elaina Melgoza MD) Father Lung cancer Brother Colon cancer Surgical History Surgical History (Updated 01/29/23 @ 12:20 by Cherelle Leyva) H/O eye surgery H/O foot surgery Hx of colonoscopy History of tubal ligation S/P excision of neuroma Social History Housing: House Alcohol intake: never Patient Tobacco Use Status: Never used Tobacco e-Cigarette/Vaping Use: Never Used Second Hand Smoke Exposure: No Use of substances other than those prescribed or required for medical reasons: No Are you DNR?: No Advance Directives: No Advance Directives Information Provided: Yes Recently lost weight without trying: Yes How much weight loss: 14-23 pounds Nutrition Risks: No Nutritional Risk service: No Current occupational status: retired Cognitive needs: No Hearing needs: No Vision needs: No Meds Allergies Allergy/AdvReac Type Severity Reaction Status Date / Time codeine Allergy Unknown gi upset Verified 01/22/23 10:28 meperidine [Demerol] Allergy Unknown rash Verified 01/22/23 10:28 Home Medications Medication Instructions Recorded Confirmed Last Taken Type calcium carbonate 600 mg calcium 600 mg PO DAILY 06/05/20 01/06/23 01/28/23 History (1,500 mg) tablet (Calcium) magnesium 200 mg tablet 200 mg PO DAILY 11/19/22 01/06/23 01/28/23 History aspirin 81 mg tablet,delayed 81 mg PO DAILY 01/06/23 01/06/23 01/28/23 History release (Adult Aspirin Regimen) Exam Exam Date and Time: January 29, 2023 1143 Narrative Narrative: Per 12/2022 cardiac visit: 30 day cardiac event monitor on 11/21/2022 showing sinus rhythm with average heart rate 69, heart rate range 47 to 129, rare ectopy. An echocardiogram done 12/18/2022 showed EF 55-60%, impaired relaxation, ascending aorta 4.4 cm. Carotid ultrasound done 11/20/2022 showing right and left ICA 0 to 49% stenosis, incidental thyroid nodule noted. Assessment and Plan Assessment Anesthesia Assessment: Chart Reviewed Documented by User: Og Dean MD 03/05/23 18:41 HPI - Anesthesia Eval Consult details Narrative: 72yo F for Colonoscopy Cardiac w/u 12/2022 d/t dizziness. Found to be d/t ear infection. Resolution of symptoms with tx of ear infection. Cardiac w/u wnl except incidental finding of mild AAA As per patient brain fog since COVID which is being managed by the PCP . [facility] Past Medical History Medical History (Updated 01/22/23 @ 10:33 by Elaina Melgoza MD) Brain fog Phantosmia Thyroid nodule greater than or equal to 1 cm in diameter incidentally noted on imaging study Thyroid nodule History of COVID-19 Fatigue Dyslipidemia Intermittent lightheadedness Intra-ventricular conduction delay Overweight (BMI 25.0-29.9) Muscle weakness of right arm 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 Migraine without aura Chronic inflammatory demyelinating polyneuropathy Family History Family History (Updated 01/22/23 @ 10:16 by Elaina Melgoza MD) Father Lung cancer Brother Colon cancer Family history of problems with anesthesia: No Surgical History Surgical History (Updated 01/29/23 @ 12:20 by Cherelle Leyva) H/O eye surgery H/O foot surgery Hx of colonoscopy History of tubal ligation S/P excision of neuroma History of Problems with Anesthesia: No Social History Housing: House Alcohol intake: never Patient Tobacco Use Status: Never used Tobacco e-Cigarette/Vaping Use: Never Used Second Hand Smoke Exposure: No Use of substances other than those prescribed or required for medical reasons: No Are you DNR?: No Advance Directives: No Advance Directives Information Provided: Yes Recently lost weight without trying: Yes How much weight loss: 14-23 pounds Nutrition Risks: No Nutritional Risk service: No Current occupational status: retired Cognitive needs: No Hearing needs: No Vision needs: No Meds Allergies Allergy/AdvReac Type Severity Reaction Status Date / Time codeine Allergy Unknown gi upset Verified 01/22/23 10:28 meperidine [Demerol] Allergy Unknown rash Verified 01/22/23 10:28 Home Medications Medication Instructions Recorded Confirmed Last Taken Type calcium carbonate 600 mg calcium 600 mg PO DAILY 06/05/20 01/06/23 01/28/23 History (1,500 mg) tablet (Calcium) magnesium 200 mg tablet 200 mg PO DAILY 11/19/22 01/06/23 01/28/23 History aspirin 81 mg tablet,delayed 81 mg PO DAILY 01/06/23 01/06/23 01/28/23 History release (Adult Aspirin Regimen) Exam Airway Mallampati Class: III Loose/Missing/Broken Teeth: Yes Assessment and Plan Assessment Anesthesia Assessment: Anesthesia Plan Discussed Final Anesthetic Review Family History of Problems with Anesthesia: No History of Problems with Anesthesia: No NPO: Yes ASA Class: III Final Preanesthetic Review: Meds/Allgs Chart Reviewed, Consent Obtained/Reviewed and Anes Risks/Benef Reviewed Patient Risk: Intermediate Procedure Risk: Intermediate Anesthetic Plan Anesthetic Plan: MAC: and Agree w/ Assess. and Plan Disposition: Standard PACU
[2023-01-30 09:31] VITALS: BMI 27.4
[2023-01-30 10:00] VITALS: BP 131/66; PULSE 67; RESP 20; TEMP 36.7; O2SAT 97
[2023-01-30] MEDS: Lactated Ringers 1,000 ML 100 ML IVCONT (10:15)
--- NOTE | 2023-01-30 11:55 | PM.OP ---
Brief Operative Note Date of Service: 01/30/23 Pre-op diagnosis: Screening Post-op diagnosis: other (Polyp) Procedure: Colonoscopy to the cecum and TI with bx/removal of polyp Surgeon: John Alcantar MD Anesthesia: MAC Was an Marketing Community Liaison used for this Procedure?: No Estimated blood loss (mL): 2.0 Pathology: other (A. Cecal polyp) Condition: stable Disposition: PACU
[2023-01-30 12:07] VITALS: BP 101/51; PULSE 81; RESP 13; TEMP 36.3; O2SAT 98
[2023-01-30 12:22] VITALS: BP 127/67; PULSE 66; RESP 18; TEMP 36.5; O2SAT 98
--- NOTE | 2023-01-30 12:36 | OP_ITS ---
DATE OF SERVICE: 01/30/2023 SURGEON: John Alcantar MD INDICATIONS: The patient presents for evaluation of colorectal cancer screening and family history of colon cancer. Full consent has been obtained from her for this, including risks of bleeding and perforation. PREOPERATIVE DIAGNOSIS: Colorectal cancer screening and family history of colon cancer. POSTOPERATIVE DIAGNOSIS: PROCEDURE PERFORMED: Colonoscopy to cecum and terminal ileum with biopsy and removal of polyp. ESTIMATED BLOOD LOSS: COMPLICATIONS: ANESTHESIA: Monitored anesthesia care. ASSISTANTS: SPECIMENS: POSTOPERATIVE DIAGNOSES: Colorectal cancer screening and family history of colon cancer, small colon polyp, diverticulosis, and internal hemorrhoids. DESCRIPTION OF PROCEDURE: The patient was placed in the left lateral decubitus position. The digital rectal exam revealed no abnormalities. The Olympus video pediatric colonoscope was entered into the rectum and advanced easily to the cecum. Once in the cecum, I did identify cecal pouch with appendiceal orifice and a normal-appearing ileocecal valve. The terminal ileum was cannulated and appeared normal. Scope was withdrawn back in the colon. The entire cecum and ileocecal valve appeared normal other than a 3 mm polyp in the cecum, which was biopsied and completely removed with a cold biopsy forceps. The scope was slowly withdrawn assessing all mucosal surfaces carefully. Preparation was excellent. I did not visualize any other polyps, colitis, nor angiodysplasia. There was a mild amount of sigmoid diverticulosis. In the rectum, scope was retroflexed visualizing internal hemorrhoids, but no other pathology. The rectal mucosa appeared normal. The scope was straightened and withdrawn from the patient. She tolerated the procedure well and was returned to the recovery area in stable condition. IMPRESSION: 1. Small colon polyp. 2. Diverticulosis. 3. Internal hemorrhoids. PLAN: The results of the biopsy will be checked. Even if this is a tubular adenoma, I do not think, she would need any further screening colonoscopies in the future given her age, this minimal finding, and 2 previously negative colonoscopies as well. She will see me on a p.r.n. basis. This has been discussed with her . MD CHUCK Arana/MILENA / [id number]
== END 2023-01-30 12:55 | disposition home or self-care (01) ==
PROVIDERS: PCP Internal Medicine; Visit Provider Internal Medicine
PROC: 0DJD8ZZ Inspection of Lower Intestinal Tract, Via Natural or Artificial Opening Endoscopic (ICD-10-PCS; CPT 45378; principal; 2023-01-30 10:50)
DX: Z12.11 Encounter for screening for malignant neoplasm of colon (principal); Z80.0 Family history of malignant neoplasm of digestive organs; D12.0 Benign neoplasm of cecum; K57.30 Diverticulosis of large intestine without perforation or abscess without bleeding; K64.8 Other hemorrhoids; Z79.82 Long term (current) use of aspirin; Z79.899 Other long term (current) drug therapy; Z88.5 Allergy status to narcotic agent
CPT/HCPCS: 45380; 88305